=== PATIENT | male | born 1995 | race Caucasian/White ===

== ENCOUNTER → 2017-05-15 | Outpatient (CLI) | payer OTHER ==
[2015-09-09 10:22] VITALS: BP 128/86
[~2017-05-15] MED LIST: AMOXICILLIN 50500 MG PO; DECADRON 4MG TAB4 MG PO; PRILOSEC 20MG20 MG PO
== END ==
LOC: RAD 10:00
DX: R60.9 Edema, unspecified (principal); Z82.49 Family history of ischemic heart disease and other diseases of the circulatory system

== ENCOUNTER → 2017-11-19 | Outpatient (CLI) | payer OTHER ==
[2015-09-09 10:22] VITALS: BP 128/86
== END ==
LOC: RAD 11:54
DX: N50.811 Right testicular pain (principal)